=== PATIENT | female | born 1980 | race Caucasian/White ===

== ENCOUNTER 2017-07-05 10:31 | Emergency (ER) | payer BC ==
[2017-07-05 11:20] VITALS: BP 104/70
--- NOTE | 2017-07-05 11:35 | UC ---
Throat Pain/Nasal Jose HPI - HPI Summary HPI Summary: Pt presents with sore throat and cough for the last 3 days. 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 Has not been taking anything OTC. Denies fever, chills, SOB, chest pain, abdominal pain. - History of Current Complaint Chief Complaint: UCGeneralIllness Stated Complaint: SORE THROAT Time Seen by Provider: 07/05/17 11:34 Hx Obtained From: Patient Hx Last Menstrual Period: 06/13/17 Onset/Duration: Gradual Onset Severity: Mild Pain Intensity: 3 Pain Scale Used: 0-10 Numeric - Allergies/Home Medications Allergies/Adverse Reactions: Allergies Allergy/AdvReac Type Severity Reaction Status Date / Time No Known Allergies Allergy Verified 07/05/17 11:15 Home Medications: Home Medications NK [No Home Medications Reported] 07/05/17 [History Confirmed 07/05/17] PMH/Surg Hx/FS Hx/Imm Hx Previously Healthy: Yes - Surgical History Surgical History: Yes Surgery Procedure, Year, and Place: left wrist surgery as a child - Family History Known Family History: Positive: None - Social History Occupation: Employed Full-time Lives: With Family Alcohol Use: Occasionally Substance Use Type: None Smoking Status (MU): Never Smoked Tobacco Review of Systems Constitutional: Negative Skin: Negative Eyes: Negative ENT: Sore Throat Respiratory: Cough Cardiovascular: Negative Gastrointestinal: Negative All Other Systems Reviewed And Are Negative: Yes Physical Exam - Summary Physical Exam Summary: GENERAL: NAD. WDWN. No pain distress. SKIN: No rashes, sores, ulcers, masses, lesions. HEENT: Head: AT/NC Eyes: Conjunctiva clear without inflammation or discharge. Ears: Hearing grossly normal. TMs intact, no bulging, erythema, or edema. Nose: Nasal mucosa pink and moist. NTTP maxillary and frontal sinus. Throat: Posterior oropharynx mild erythema and 2+ tonsillar enlargement. No exudates. Uvula midline. No hoarse voice or muffled voice. NECK: Supple. Nontender. No lymphadenopathy. CHEST: CTAB. No r/r/w. No accessory muscle use. Breathing comfortably and in no distress. CV: RRR. Without m/r/g. Pulses intact. Brisk cap refill. NEURO: Alert. CN II-XII grossly intact. PSYCH: Age appropriate behavior. Triage Information Reviewed: Yes Vital Signs: Initial Vital Signs Temp 98.8 F 07/05/17 11:15 Pulse 64 07/05/17 11:15 Resp 16 07/05/17 11:15 BP 104/70 07/05/17 11:15 Pulse Ox 100 07/05/17 11:15 Throat Pain/Nasal Course/Dx - Course Course Of Treatment: POC strep negative. Suspect viral pharyngitis. Advised rest , fluids, and ibuprofen prn. Pt agreeable to this plan - Differential Dx/Diagnosis Provider Diagnoses: Viral pharyngitis Discharge - Discharge Plan Condition: Stable Disposition: HOME Patient Education Materials: Pharyngitis (ED) Forms: *Work Release Referrals: Riley Parker MD [Primary Care Provider] - Additional Instructions: If you develop a fever, shortness of breath, chest pain, new or worsening symptoms - please call your PCP or go to the ED.
== END 2017-07-05 12:10 | disposition home or self-care (01) ==
LOC: UCEAST 10:31
DX: J02.8 Acute pharyngitis due to other specified organisms (principal)
CPT/HCPCS: 87651; 99211; G0463

== ENCOUNTER 2017-08-26 11:33 | Emergency (ER) | payer BC ==
[2017-08-26 11:58] VITALS: BP 99/61
--- NOTE | 2017-08-26 12:20 | UC ---
Throat Pain/Nasal Jose HPI - HPI Summary HPI Summary: started feeling sick 5 days ago, ST, fever, tested neg for strep and influenza 3 days ago. still coughing and nasal drainage is green now. tried OTC cold meds without relief - History of Current Complaint Chief Complaint: UCGeneralIllness Stated Complaint: COUGH Time Seen by Provider: 08/26/17 11:39 Hx Obtained From: Patient Hx Last Menstrual Period: 08/07/2017 ?: No Onset/Duration: Gradual Onset Severity: Moderate Pain Intensity: 0 Cough: Productive Associated Signs & Symptoms: Positive: Sinus Discomfort, Nasal Discharge, Other - fatigue - Allergies/Home Medications Allergies/Adverse Reactions: Allergies Allergy/AdvReac Type Severity Reaction Status Date / Time No Known Allergies Allergy Verified 07/05/17 11:15 PMH/Surg Hx/FS Hx/Imm Hx Previously Healthy: Yes - Surgical History Surgical History: Yes Surgery Procedure, Year, and Place: left wrist surgery as a child - Family History Known Family History: Positive: None - Social History 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 Lives: With Family Alcohol Use: Occasionally Substance Use Type: None Smoking Status (MU): Never Smoked Tobacco Review of Systems Constitutional: Fatigue Skin: Negative ENT: Nasal Discharge, Sinus Congestion Respiratory: Cough Cardiovascular: Negative Musculoskeletal: Negative Neurological: Negative Psychological: Negative Is Patient Immunocompromised?: No All Other Systems Reviewed And Are Negative: Yes Physical Exam Triage Information Reviewed: Yes Appearance: Well-Appearing, Well-Nourished Vital Signs: Initial Vital Signs Temp 98.7 F 08/26/17 11:53 Pulse 82 08/26/17 11:53 Resp 18 08/26/17 11:53 BP 99/61 08/26/17 11:53 Pulse Ox 100 08/26/17 11:53 Vital Signs Reviewed: Yes Eye Exam: Normal Eyes: Positive: Conjunctiva Clear ENT: Positive: Nasal congestion, TMs normal, Sinus tenderness Neck exam: Normal Neck: Positive: Supple, Nontender Respiratory Exam: Normal Respiratory: Positive: Lungs clear Cardiovascular Exam: Normal Psychological Exam: Normal Skin Exam: Normal Throat Pain/Nasal Course/Dx - Differential Dx/Diagnosis Differential Diagnosis/HQI/PQRI: Influenza, Pharyngitis, Sinusitis, URI Provider Diagnoses: sinusitis Discharge - Sign-Out/Discharge Documenting (check all that apply): Discharge/Admit/Transfer - Discharge Plan Condition: Good Disposition: HOME Prescriptions: Cefdinir cap (NF) [Cefdinir 300 MG cap (NF)] 300 mg PO BID #20 cap Patient Education Materials: Sinusitis (ED) Referrals: Riley Parker MD [Primary Care Provider] - 3 Days (if no better) Additional Instructions: drink plenty of fluids and rest use DayQuil/NyQuil for symptom relief use cefdinir as prescribed - Billing Disposition and Condition Condition: GOOD Disposition: HOME
== END 2017-08-26 12:25 | disposition home or self-care (01) ==
LOC: UCEAST 11:33
DX: J32.9 Chronic sinusitis, unspecified (principal); R53.83 Other fatigue
CPT/HCPCS: 99212; G0463

== ENCOUNTER 2017-12-15 19:09 | Emergency (ER) | payer BC ==
[2017-12-15 19:29] VITALS: BP 97/59
--- NOTE | 2017-12-15 19:46 | UC ---
UC General HPI - HPI Summary HPI Summary: Pleasant 37 yo female c/o progressive R thigh pain. Sx started one week ago, progressively worse. Today more concerned d/t feeling of unwellness, facial tingling. Without sob perse. No palpitations / chest pain. No GI issues. Sign hx - s/p elective medical ab on Monday, still some bleeding but better. IUD placed at that time. No fever / chills. No recent injury. No rash. Sgn fam hx - father pulm embolism - History of Current Complaint Chief Complaint: UCGeneralIllness Stated Complaint: RADIATING THIGH PAIN,NAUSEA,TINGLING Time Seen by Provider: 12/15/17 19:42 Hx Obtained From: Patient Hx Last Menstrual Period: [id number] Pain Intensity: 0 - Allergy/Home Medications Allergies/Adverse Reactions: Allergies Allergy/AdvReac Type Severity Reaction Status Date / Time No Known Allergies Allergy Verified 12/15/17 19:29 Home Medications: Home Medications Ibuprofen TAB* [Motrin TAB* 400 MG] 400 mg PO Q6H PRN 12/15/17 [History Confirmed 12/15/17] PMH/Surg Hx/FS Hx/Imm Hx Previously Healthy: Yes - see hpi - Surgical History Surgical History: Yes Surgery Procedure, Year, and Place: left wrist surgery as a child - Family History Known Family History: Positive: Other - + father pulm emb - Social History Occupation: Employed Full-time Alcohol Use: Weekly Substance Use Type: None Smoking Status (MU): Former Smoker Review of Systems Constitutional: Fatigue Skin: Negative Eyes: Negative ENT: Negative Respiratory: Negative - see hpi Cardiovascular: Negative Gastrointestinal: Negative Genitourinary: Negative - see hpi Motor: Other - see hpi Neurovascular: Negative Musculoskeletal: Other: - see hpi Neurological: Negative Psychological: Negative Is Patient Immunocompromised?: No All Other Systems Reviewed And Are Negative: Yes Physical Exam Triage Information Reviewed: Yes Appearance: Well-Nourished - sitting up. NAD. looks tired. Vital Signs: Initial Vital Signs Temp 98.4 F 12/15/17 19:23 Pulse 77 12/15/17 19:23 Resp 16 12/15/17 19:23 BP 97/59 12/15/17 19:23 Pulse Ox 100 12/15/17 19:23 Vital Signs Reviewed: Yes Eye Exam: Normal - grossly normal ENT Exam: Normal - mmm, grossly normal Neck exam: Normal Neck: Positive: Supple Respiratory Exam: Normal Respiratory: Positive: Chest non-tender, Lungs clear, Normal breath sounds, No respiratory distress Cardiovascular Exam: Normal Cardiovascular: Positive: RRR, No Murmur, Pulses Normal, Brisk Capillary Refill Abdominal Exam: Normal Abdomen Description: Positive: Nontender Musculoskeletal Exam: Other - R thigh ant and med, ext to post + tender. + swelling mild R>L Without point bone tenderness. Neurological Exam: Normal - grossly nonfocal, facial expressions symmetric. + subj tingling sensation on maxillae Psychological Exam: Normal - conversing easily and appropriately Skin Exam: Normal - no visible or reported rash. there is a small very slightly red are c/w insect bite RLE, however not c/w level of nor degree of pain. groin bilat - without mass or adenopathy (although reports periodic hx R groin adenopathy) Course/Dx - Course Course Of Treatment: Reviewed coa / tx plan. UCG not done d/t recent ab as noted in HPI. Location (ant component) thigh discomfort less c/w vascular issues; however recent significant med hx, in addition to sign fam hx, increase risk vascular concern ex dvt. Other diff includes albeit not limited to chemistry, immunological, musc skel. To ED for further eval and treatment. Ms. Buenrostro will drive pov. Questions as posed answered to the best of my ability. - Differential Dx - Multi-Symptom Provider Diagnoses: Right leg pain Discharge - Sign-Out/Discharge Documenting (check all that apply): Patient Departure - Discharge Plan Condition: Stable Disposition: HOME-RECOMMEND TO ED Referrals: Riley Parker MD [Primary Care Provider] - Additional Instructions: Right leg pain - recommend Emergency Department for further evaluation / treatment. Call 911 for problems en route. - Billing Disposition and Condition Condition: STABLE Disposition: Home-Recommend to ED
== END 2017-12-15 20:15 | disposition home health service (06) ==
LOC: UCEAST 19:09
DX: M79.604 Pain in right leg (principal); R53.83 Other fatigue; Z87.891 Personal history of nicotine dependence
CPT/HCPCS: 99212; G0463

== ENCOUNTER 2017-12-15 20:38 | Emergency (ER) | payer BC ==
[2017-12-15 21:30] LABS: ABS Basophils 0 10^3/ul (0-0.2); ABS Eosinophils 0 10^3/ul (0-0.6); ABS Lymphocytes 2.5 10^3/ul (1.0-4.8); ABS Monocytes 0.4 10^3/ul (0-0.8); ABS Neutrophils 3.4 10^3/ul (1.5-7.7); ABS Nucleated RBC 0 10^3/ul; Eosinophil % 0.8 % (0-6); Hematocrit 40 % (35-47); Hemoglobin 13.5 g/dl (12.0-16.0); Lymphocyte % 38.7 % (25-47); Mean Corpuscular HGB Conc 34 g/dl (31-36); Mean Corpuscular Hemoglobin 31 pg (27-31); Mean Corpuscular Volume 92 fL (80-97); Mean Platelet Volume 8.5 um3 (7.4-10.4); Nucleated Red Blood Cells % 0.1; Platelet Count 197 10^3/ul (150-450); Red Blood Count 4.37 10^6/ul (4.00-5.40); Red Cell Distribution Width 13 % (10.5-15); White Blood Count 6.4 10^3/ul (3.5-10.8)
[2017-12-15 21:47] LABS: EGFR Non-African American 87.8 (>60)
--- NOTE | 2017-12-15 23:10 | RAD ---
EXAM: US Duplex Right Lower Extremity Veins CLINICAL HISTORY: 37 years old, female; Pain; Leg, upper; Right; Additional info: Right thigh pain TECHNIQUE: Real-time duplex ultrasound scan of the right lower extremity veins integrating B-mode two-dimensional vascular structure, Doppler spectral analysis, color flow Doppler imaging and compression. COMPARISON: No relevant prior studies available. FINDINGS: Deep veins: Unremarkable. No DVT in the visualized common femoral, femoral, proximal deep femoral or popliteal veins. The veins demonstrate normal color flow, are normally compressible, with normal phasic flow and/or augmentation response. Superficial veins: Unremarkable. No thrombus in the visualized great saphenous vein. Soft tissues: No acute findings. No popliteal cyst. IMPRESSION: Normal right lower extremity duplex venous ultrasound. R0
--- NOTE | 2017-12-15 23:59 | ED ---
Lower Extremity - HPI Summary HPI Summary: 37-year-old female presents with right thigh pain for a week. She states that is crampy in nature. She denies any injury. No numbness or tingling. No back pain. She states that the cramping traveled up to her abd at one point. Patient taking Advil with some relief. Never had this before. No previous fracture to the area. She does have family history of blood clots. No recent travel or surgeries. She is nonsmoker. She recently got a copper IUD. - History of Current Complaint Chief Complaint: EDExtremityUpper Stated Complaint: PAIN IN RT LEG Time Seen by Provider: 12/15/17 23:29 Hx Last Menstrual Period: [id number] Pain Intensity: 1 - Allergies/Home Medications Allergies/Adverse Reactions: Allergies Allergy/AdvReac Type Severity Reaction Status Date / Time No Known Allergies Allergy Verified 12/15/17 21:00 PMH/Surg Hx/FS Hx/Imm Hx Endocrine/Hematology History: Denies: Hx Diabetes, Hx Thyroid Disease Cardiovascular History: Denies: Hx Hypertension Respiratory History: Denies: Hx Asthma, Hx Chronic Obstructive Pulmonary Disease (COPD) GI History: Denies: Hx Ulcer - Surgical History Surgery Procedure, Year, and Place: left wrist surgery as a child Infectious Disease History: No Infectious Disease History: Denies: Hx Hepatitis, Hx Human Immunodeficiency Virus (HIV), Traveled Outside the [place] in Last 30 Days - Family History Known Family History: Positive: None, Other - + father pulm emb - Social History Alcohol Use: Weekly Substance Use Type: Reports: None Smoking Status (MU): Former Smoker Review of Systems Negative: Fever Negative: Chest Pain Negative: Shortness Of Breath Positive: Myalgia - right lower leg All Other Systems Reviewed And Are Negative: Yes Physical Exam Triage Information Reviewed: Yes Vital Signs On Initial Exam: Initial Vitals Temp Pulse Resp BP Pulse Ox 98.8 F 65 16 116/70 100 12/15/17 20:55 12/15/17 20:55 12/15/17 20:55 12/15/17 20:55 12/15/17 20:55 Vital Signs Reviewed: Yes Appearance: Positive: Well-Appearing Skin: Positive: Warm, Dry Head/Face: Positive: Normal Head/Face Inspection Eyes: Positive: Normal, Conjunctiva Clear ENT: Positive: Pharynx normal Respiratory/Lung Sounds: Positive: Clear to Auscultation, Breath Sounds Present Cardiovascular: Positive: Normal, RRR Musculoskeletal: Positive: Strength/ROM Intact - right lower leg, Other - good pulses, sensation grossly intact Neurological: Positive: Normal Psychiatric: Positive: Normal Diagnostics - Vital Signs Vital Signs Temp Pulse Resp BP Pulse Ox 12/15/17 22:20 98.5 F 58 94/58 100 12/15/17 20:55 98.8 F 65 16 116/70 100 - Laboratory Lab Results: Lab Results 12/15/17 12/15/17 Range/Units 21:22 21:22 WBC 6.4 (3.5-10.8) 10^3/ul RBC 4.37 (4.00-5.40) 10^6/ul Hgb 13.5 (12.0-16.0) g/dl Hct 40 (35-47) % MCV 92 (80-97) fL MCH 31 (27-31) pg MCHC 34 (31-36) g/dl RDW 13 (10.5-15) % Plt Count 197 (150-450) 10^3/ul MPV 8.5 (7.4-10.4) um3 Neut % (Auto) 53.2 (38-83) % Lymph % (Auto) 38.7 (25-47) % [place] % (Auto) 6.6 (0-7) % Eos % (Auto) 0.8 (0-6) % Baso % (Auto) 0.7 (0-2) % Absolute Neuts (auto) 3.4 (1.5-7.7) 10^3/ul Absolute Lymphs (auto) 2.5 (1.0-4.8) 10^3/ul Absolute Monos (auto) 0.4 (0-0.8) 10^3/ul Absolute Eos (auto) 0 (0-0.6) 10^3/ul Absolute Basos (auto) 0 (0-0.2) 10^3/ul Absolute Nucleated RBC 0 10^3/ul Nucleated RBC % 0.1 Sodium 139 (135-145) mmol/L Potassium 4.1 (3.5-5.0) mmol/L Chloride 107 (101-111) mmol/L Carbon Dioxide 27 (22-32) mmol/L Anion Gap 5 (2-11) mmol/L BUN 13 (6-24) mg/dL Creatinine 0.74 (0.51-0.95) mg/dL Est GFR ( Amer) 106.3 (>60) Est GFR (Non-Af Amer) 87.8 (>60) BUN/Creatinine Ratio 17.6 (8-20) Glucose 102 H (70-100) mg/dL Calcium 9.2 (8.6-10.3) mg/dL Total Bilirubin 0.40 (0.2-1.0) mg/dL AST 14 (13-39) U/L ALT 8 (7-52) U/L Alkaline Phosphatase 51 (34-104) U/L Total Protein 7.2 (6.4-8.9) g/dL Albumin 4.4 (3.2-5.2) g/dL Globulin 2.8 (2-4) g/dL Albumin/Globulin Ratio 1.6 (1-3) Result Diagrams: 12/15/17 21:22 12/15/17 21:22 Lab Statement: Any lab studies that have been ordered have been reviewed, and results considered in the medical decision making process. - Ultrasound No standard instances Ultrasound Interpretation: No Acute Changes Ultrasound Interpretation Completed By: Radiologist Lower Extremity Course/Dx - Course Course Of Treatment: 37-year-old female presents with right thigh pain for a week. She states that is crampy in nature. She denies any injury. No numbness or tingling. No back pain. She states that the cramping traveled up to her abd at one point. Patient taking Advil with some relief. Never had this before. No previous fracture to the area. She does have family history of blood clots. No recent travel or surgeries. She is nonsmoker. She recently got a copper IUD. On exam has full range of motion of right leg. Neurovascular intact. Ultrasound normal. Labs normal. We'll have follow-up with primary. Patient understands agrees the plan. - Diagnoses Differential Diagnosis/HQI/PQRI: Positive: DVT, Fracture (Closed), Sprain Provider Diagnoses: Right thigh pain Discharge - Sign-Out/Discharge Documenting (check all that apply): Patient Departure - Discharge Plan Condition: Good Disposition: HOME Patient Education Materials: Leg Pain (ED) Referrals: Riley Parker MD [Primary Care Provider] - Additional Instructions: Take Tylenol or ibuprofen every 6 hours as needed for pain Apply ice, rest, elevate Follow up with primary care physician within 5 days Return to ED if develop any new or worsening symptoms - Billing Disposition and Condition Condition: GOOD Disposition: Home
[2017-12-16 00:19] VITALS: BP 101/80
== END 2017-12-16 00:18 | disposition home or self-care (01) ==
LOC: ED 20:38
DX: M79.651 Pain in right thigh (principal); Z97.5 Presence of (intrauterine) contraceptive device; Z87.891 Personal history of nicotine dependence
CPT/HCPCS: 36415; 80053; 85025; 99283

== ENCOUNTER 2018-01-19 19:37 | Emergency (ER) | payer BC ==
[2018-01-19 20:10] VITALS: BP 115/77
--- NOTE | 2018-01-19 20:15 | UC ---
Hand/Wrist HPI - HPI Summary HPI Summary: This patient is a 38 year old F presenting to [facility] with a chief complaint of L thumb pain since 1930. Patient rates the pain 7/10 in severity and describes it as an aching pain. Prior treatment includes Advil x2. The patient closed the car door on her thumb after loading her children into her vehicle. 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 - History Of Current Complaint Chief Complaint: UCUpperExtremity Stated Complaint: THUMB INJURY Time Seen by Provider: 01/19/18 20:09 Hx Obtained From: Patient Hx Last Menstrual Period: [id number] Onset/Duration: Sudden Onset, Lasting Hours, Still Present Severity Initially: Moderate Severity Currently: Moderate Pain Intensity: 7 Character Of Pain: Aching Aggravating Factor(s): Other - nothing Alleviating Factor(s): Nothing Associated Signs And Symptoms: Positive: Other - Allergies/Home Medications Allergies/Adverse Reactions: Allergies Allergy/AdvReac Type Severity Reaction Status Date / Time No Known Allergies Allergy Verified 01/19/18 20:07 PMH/Surg Hx/FS Hx/Imm Hx Endocrine History: Other Other Endocrine History: No DM Cardiovascular History: Other Other Cardiovascular History: No CAD, HTN - Surgical History Surgical History: Yes Surgery Procedure, Year, and Place: left wrist surgery as a child - Family History Known Family History: Positive: Other - + father pulm emb - Social History Alcohol Use: Weekly Substance Use Type: None Smoking Status (MU): Former Smoker Review of Systems Constitutional: Other - No fever Musculoskeletal: Other: - L Thumb Pain All Other Systems Reviewed And Are Negative: Yes Physical Exam - Summary Physical Exam Summary: VITAL SIGNS: Reviewed. GENERAL: Patient is a well-developed and nourished FEMALE who is lying comfortable in the stretcher. Patient is not in any acute respiratory distress. HEAD AND FACE: Normocephalic EYES: PERRLA, EOMI x 2. EARS: Hearing grossly intact. MOUTH: Oropharynx within normal limits. NECK: Supple, trachea is midline, no adenopathy, no JVD, no carotid bruit. CHEST: Symmetric, no tenderness at palpation LUNGS: Clear to auscultation bilaterally. No wheezing or crackles. CVS: Regular rate and rhythm, S1 and S2 present, no murmurs or gallops appreciated. ABDOMEN: Soft, non-tender. Bowel sounds are normal. No abdominal abnormal pulsations. EXTREMITIES: Full ROM in all major joints, no edema, no cyanosis or clubbing.Tenderness in L Thumb. NEURO: Alert and oriented x 3. No acute neurological deficits. Speech is normal and follows commands. SKIN: Dry and warm Triage Information Reviewed: Yes Vital Signs: Initial Vital Signs Temp 98.9 F 01/19/18 20:07 Pulse 85 01/19/18 20:07 Resp 16 01/19/18 20:07 BP 115/77 01/19/18 20:07 Pulse Ox 100 01/19/18 20:07 Vital Signs Reviewed: Yes Diagnostics - Radiology L thumb XR Radiology Interpretation Completed By: ED Physician - No evidence of fracture or dislocation. Pending official radiologist interpretation. Re-Evaluation - Re-Evaluation First Eval Re-Evaluation Time: 20:27 Comment: Discussed XR results and plan for discharge witht the patient. Hand/Wrist Course/Dx - Course Course Of Treatment: X-ray of the left first digit impression: No fracture dislocation. The physical exam the patient is neurovascularly intact. Patient was placed in a finger splint. She will be discharged home with follow-up with PCP. She was instructed to return to the urgent care or go to the emergency room if the patient develops increase in pain, more swelling, erythema or any other symptom. She understands and agrees. - Differential Dx/Diagnosis Differential Diagnosis/HQI/PQRI: Other - thumb pain Provider Diagnoses: thumb pain Discharge - Sign-Out/Discharge Documenting (check all that apply): Patient Departure All imaging exams completed and their final reports reviewed: Yes - Discharge Plan Condition: Stable Disposition: HOME Patient Education Materials: Finger Sprain (ED), Swollen Joint (ED) Referrals: Riley Parker MD [Primary Care Provider] - Additional Instructions: Take Acetaminophen or ibuprofen for pain Increase your fluid intake Return to the or go to the emergency department if symptoms worsen Follow-up with primary care physician in next 2-3 days - Billing Disposition and Condition Condition: STABLE Disposition: Home - Attestation Statements Document Initiated by Scribe: Yes Documenting Scribe: Vinicio Shaw Provider For Whom Scribe is Documenting (Include Credential): Nikko Godfrey MD Scribe Attestation: Vinicio Martinez, scribed for Nikko Godfrey MD on 01/19/18 at 2044. Scribe Documentation Reviewed: Yes Provider Attestation: The documentation as recorded by the scribe, Vinicio Shaw accurately reflects the service I personally performed and the decisions made by me, Nikko Godfrey MD
--- NOTE | 2018-01-20 12:59 | RAD ---
INDICATION: Left thumb interphalangeal joint pain COMPARISON: None TECHNIQUE: 3 views of the left thumb were obtained. FINDINGS: The bones are normal alignment. Joint spaces appear maintained. No fracture is seen. IMPRESSION: No acute fracture or dislocation. If the patient's symptoms persist, follow-up imaging is recommended. R0
== END 2018-01-19 20:39 | disposition home or self-care (01) ==
LOC: UCEAST 19:37
DX: M79.645 Pain in left finger(s) (principal); Y92.9 Unspecified place or not applicable; V49.88XS Car occupant (driver) (passenger) injured in other specified transport accidents, sequela; S64.32 Injury of digital nerve of left thumb
CPT/HCPCS: 99211; G0463

== ENCOUNTER 2018-10-06 11:23 | Emergency (ER) | payer BC ==
--- NOTE | 2018-10-06 11:51 | ED ---
Dizziness - HPI Summary HPI Summary: Time seen by provider: 1148. The patient is a 38 y/o F presenting to [facility] with a chief complaint of sudden onset dizziness and blurred vision yesterday that has since resolved. She states she was driving at the time of onset, and then her symptoms dissipated after a while. She additionally c/o tingling in the right face, fingers, and leg , that has also since resolved except the right finger tingling is still somewhat present now. She states she is unsure if the symptoms were a result of stress or anxiety, which she has had anxiety attacks before but were different. She called her PCP, who suggested she get checked for possible TIA. No hx except borderline hypotensive. She also reports that she is sensitive to elevation and pressure changes. Surgical hx in left forearm when younger. FHx of diabetes and breast cancer. Former smoker, weekly EtOH, no substance use. - History Of Current Complaint Chief Complaint: EDNeurologicalDeficit Stated Complaint: "DIZZINESS PER PT" Time Seen by Provider: 10/06/18 11:43 Hx Obtained From: Patient Onset/Duration: Resolved, Suddenly Timing: Minutes Severity Initially: Moderate Severity Currently: Mild Character: Dizzy Aggravating Factor(s): Nothing Alleviating Factor(s): Nothing Associated Signs And Symptoms: Positive: Visual Changes - blurred vision, Other : - tingling in right side of face (resolved), right fingers (still present), and right leg (resolved) - Allergies/Home Medications Allergies/Adverse Reactions: Allergies Allergy/AdvReac Type Severity Reaction Status Date / Time No Known Allergies Allergy Verified 10/06/18 11:40 Home Medications: Home Medications NK [No Home Medications Reported] 10/06/18 [History Confirmed 10/06/18] PMH/Surg Hx/FS Hx/Imm Hx Endocrine/Hematology History: Denies: Hx Diabetes, Hx Thyroid Disease Cardiovascular History: Denies: Hx Hypertension Respiratory History: Denies: Hx Asthma, Hx Chronic Obstructive Pulmonary Disease (COPD) GI History: Denies: Hx Ulcer - Surgical History Surgery Procedure, Year, and Place: left wrist surgery as a child Infectious Disease History: No Infectious Disease History: Denies: Hx Hepatitis, Hx Human Immunodeficiency Virus (HIV), Traveled Outside the [place] in Last 30 Days - Family History Known Family History: Positive: Diabetes - maternal grandfather, Other - PE in father, breast cancer in mother - Social History Alcohol Use: Weekly Hx Substance Use: No Substance Use Type: Reports: None Hx Tobacco Use: Yes Smoking Status (MU): Former Smoker Do You Chew or Dip Tobacco: No Have You Chewed or Dipped Tobacco in the LAST YEAR: No Have You Smoked in the Last Year: No Review of Systems Positive: Blurred Vision Neurological: Other - dizziness, tingling in right face, fingers (still present) , and leg All Other Systems Reviewed And Are Negative: Yes Physical Exam - Summary Physical Exam Summary: VITAL SIGNS: Reviewed. GENERAL: Patient is a well-developed and nourished female who is lying comfortable in the stretcher but appears to be anxious. Patient is not in any acute respiratory distress. HEAD AND FACE: No signs of trauma. No ecchymosis, hematomas or skull depressions. No sinus tenderness. EYES: PERRLA, EOMI x 2, No injected conjunctiva, no nystagmus. No photophobia. EARS: Hearing grossly intact. Ear canals and tympanic membranes are within normal limits. MOUTH: Oropharynx within normal limits. NECK: Supple, trachea is midline, no adenopathy, no JVD, no carotid bruit, no c- spine tenderness, neck with full ROM. No meningeal signs, no Kernig's or brudzinskis signs. CHEST: Symmetric, no tenderness at palpation LUNGS: Clear to auscultation bilaterally. No wheezing or crackles. CVS: Regular rate and rhythm, S1 and S2 present, no murmurs or gallops appreciated. ABDOMEN: Soft, non-tender. No signs of distention. No rebound no guarding, and no masses palpated. Bowel sounds are normal. EXTREMITIES: FROM in all major joints, no edema, no cyanosis or clubbing. NEURO: Alert and oriented x 3. No acute neurological deficits. Speech is normal and follows commands. SKIN: Dry and warm. GCS: 15 NIH: 0 Triage Information Reviewed: Yes Vital Signs On Initial Exam: Initial Vitals Temp Pulse Resp BP Pulse Ox 98.4 F 86 14 124/89 100 10/06/18 11:35 10/06/18 11:35 10/06/18 11:35 10/06/18 11:35 10/06/18 11:35 Vital Signs Reviewed: Yes - Misael Coma Scale Best Eye Response: 4 - Spontaneous Best Motor Response: 6 - Obeys Commands Best Verbal Response: 5 - Oriented Coma Scale Total: 15 Diagnostics - Vital Signs Vital Signs Temp Pulse Resp BP Pulse Ox 10/06/18 11:35 98.4 F 86 14 124/89 100 - Laboratory Result Diagrams: 10/06/18 12:22 10/06/18 12:22 Lab Statement: Any lab studies that have been ordered have been reviewed, and results considered in the medical decision making process. - Radiology CXR Radiology Interpretation Completed By: Radiologist Summary of Radiographic Findings: Findings consistent with COPD, no evidence for acute disease. ED physician has reviewed this radiology report. - CT Brain CT CT Interpretation Completed By: Radiologist Summary of CT Findings: No evidence for acute intracranial abnormality. ED physician has reviewed this radiology report. 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 Non-Paretic Hand: Both Correctly Best Gaze (Only Horizontal Eye Movement): Normal Visual Field Testing: No Visual Loss Facial Paresis-Pt to Smile & Close Eyes or Grimace Symmetry: Normal/Symmetrical Motor Function - Right Arm: No Drift-Holds 10 Seconds Motor Function - Left Arm: No Drift-Holds 10 Seconds Motor Function - Right Leg: No Drift-Holds 10 Seconds Motor Function - Left Leg: No Drift-Holds 10 Seconds Limb Ataxia-Must be out of Proportion to Weakness Present: Absent Sensory (Use Pinprick to Test Arms/Legs/Trunk/Face): Normal Best Language (Describe Picture, Name Items): No Aphasia Dysarthria (Read Several Words): Normal Extinction and Inattention: No Abnormality Total Score: 0 Re-Evaluation - Re-Evaluation First Eval Re-Evaluation Time: 13:10 Comment: I discussed results and discharge home with follow up with PCP. Dizzy Course/Dx - Course Assessment/Plan: The patient is a 38 y/o F presenting to [facility] with a chief complaint of sudden onset dizziness and blurred vision yesterday that has since resolved. She states she was driving at the time of onset, and then her symptoms dissipated after a while. She additionally c/o tingling in the right face, fingers, and leg, that has also since resolved except the right finger tingling is still somewhat present now. She states she is unsure if the symptoms were a result of stress or anxiety, which she has had anxiety attacks before but were different. She called her PCP, who suggested she get checked for possible TIA. No past medical hx except borderline hypotensive. She also reports that she is sensitive to elevation and pressure changes. Surgical hx in left forearm when younger. FHx of diabetes and breast cancer. Former smoker, weekly EtOH, no substance use. Blood work without any significant abnormality. Chest x-ray impression: Findings consistent with COPD, No evidence for acute disease. Head CT impression: No acute intracranial pathology. In the ED course the patient is stable. The patient doesnt have any neurological deficits. NIH score is equal to 0, and the Misael Coma Scale is equal to 15. Patient has no comorbidities for a TIA or CVA. Therefore, I have no suspicion for any of these diseases. I discussed my physical exam and findings with the patient and the need to follow-up with her primary care physician. She was recommended to return to the emergency room if she develops any other episode of dizziness, numbness, panic attacks, or any other complaint. The patient understands and agrees. - Diagnoses Provider Diagnoses: Anxiety Discharge - Sign-Out/Discharge Documenting (check all that apply): Patient Departure - Patient will be discharged home. Patient Received Moderate/Deep Sedation with Procedure: No - Discharge Plan Condition: Good Disposition: HOME Patient Education Materials: Anxiety (ED) Referrals: Riley Parker MD [Primary Care Provider] - 3 Days Additional Instructions: FOLLOW UP WITH YOUR PRIMARY CARE PROVIDER IN 2-3 DAYS. RETURN TO THE ED FOR ANY WORSENING OR NEW SYMPTOMS. - Billing Disposition and Condition Condition: GOOD Disposition: Home - Attestation Statements Document Initiated by Tasha: Yes Documenting Scribe: Keyana Adorno Provider For Whom Tasha is Documenting (Include Credential): Dr. Nikko Godfrey MD Scribe Attestation: Keyana Martinez scribed for Dr. Nikko Godfrey MD on 10/06/18 at 1310. Scribe Documentation Reviewed: Yes Provider Attestation: The documentation as recorded by the Keyana phan accurately reflects the service I personally performed and the decisions made by me, Dr. Nikko Godfrey MD Status of Scribe Document: Ready
[2018-10-06 12:32] LABS: ABS Lymphocytes 1.7 10^3/ul (1.0-4.8); ABS Monocytes 0.3 10^3/ul (0-0.8); ABS Neutrophils 2.9 10^3/ul (1.5-7.7); Eosinophil % 0.7 %; Hematocrit 42 % (35-47); Hemoglobin 14.1 g/dL (12.0-16.0); Lymphocyte % 33.5 %; Mean Corpuscular HGB Conc 34 g/dL (31-36); Mean Corpuscular Hemoglobin 31 pg (27-31); Mean Corpuscular Volume 91 fL (80-97); Mean Platelet Volume 9.5 fL (7.4-10.4); Platelet Count 192 10^3/uL (150-450); Red Blood Count 4.62 10^6 /uL (3.70-4.87); Red Cell Distribution Width 13 % (10-15); White Blood Count 4.9 10^3/uL (3.5-10.8)
[2018-10-06 12:38] LABS: INR 0.97 (0.82-1.09)
[2018-10-06 12:48] LABS: ALT 9 U/L (7-52); AST 16 U/L (13-39); Albumin 4.5 g/dL (3.2-5.2); Albumin/Globulin Ratio 1.7 (1-3); Alkaline Phosphatase 62 U/L (34-104); Anion Gap 6 mmol/L (2-11); BUN/Creatinine Ratio 13.9 (8-20); Blood Urea Nitrogen 11 mg/dL (6-24); CO2 Carbon Dioxide 27 mmol/L (22-32); Calcium 9.5 mg/dL (8.6-10.3); Chloride 107 mmol/L (101-111); Globulin 2.7 g/dL (2-4); Glucose 94 mg/dL (70-100); Potassium 3.9 mmol/L (3.5-5.0); Sodium 140 mmol/L (135-145); Total Protein 7.2 g/dL (6.4-8.9)
[2018-10-06 12:55] LABS: HCG Pregnancy < 0.60 mIU/mL
[2018-10-06 13:00] LABS: Urine Appearance Clear; Urine Bacteria Absent (Absent); Urine Bilirubin Negative (Negative); Urine Blood 3+ (Negative); Urine Color Straw; Urine Glucose Negative (Negative); Urine Ketones Negative (Negative); Urine Nitrite Negative (Negative); Urine Protein Negative (Negative); Urine Red Blood Cell Trace(0-2/hpf) (Absent); Urine Specific Gravity 1.004 (1.010-1.030); Urine Squamous Epithelial Cell Present (Absent); Urine Urobilinogen Negative (Negative); Urine White Blood Cell Trace(0-5/hpf) (Absent)
[2018-10-06 13:10] VITALS: BP 111/77
== END 2018-10-06 13:14 | disposition home or self-care (01) ==
LOC: ED 11:23
DX: F41.9 Anxiety disorder, unspecified (principal); R20.2 Paresthesia of skin; Z87.891 Personal history of nicotine dependence
CPT/HCPCS: 36415; 70450; 71046; 80053; 81003; 81015; 83605; 84484; 84702; 85025; 85610; 87086; 93005; 99282

== ENCOUNTER 2018-10-26 10:16 | Emergency (ER) | payer BC ==
--- NOTE | 2018-10-26 10:20 | UC ---
Skin Complaint HPI - HPI Summary HPI Summary: 38 yo female presents with puncture wound. 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 Had immediate pain. She washed the area with soap and water and applied gauze. Came directly to . She states her last tetanus was "a long time ago". - History of Current Complaint Time Seen by Provider: 10/26/18 10:20 Stated Complaint: PUNCTURE WOUND Hx Obtained From: Patient Hx Last Menstrual Period: [id number] Onset/Duration: Sudden Onset Skin Exposure Onset/Duration: Minutes Ago Timing: Constant Onset Severity: Moderate Current Severity: Mild Pain Intensity: 4 Pain Scale Used: 0-10 Numeric - Allergy/Home Medications Allergies/Adverse Reactions: Allergies Allergy/AdvReac Type Severity Reaction Status Date / Time No Known Allergies Allergy Verified 10/26/18 10:22 PMH/Surg Hx/FS Hx/Imm Hx - Additional Past Medical History Additional PMH: None - Surgical History Surgical History: Yes Surgery Procedure, Year, and Place: LEFT WRIST ( CHILD); - Family History Known Family History: Positive: Diabetes - maternal grandfather, Other - PE in father, breast cancer in mother - Social History Occupation: Employed Full-time Lives: With Family Alcohol Use: Weekly Substance Use Type: None Smoking Status (MU): Former Smoker Have You Smoked in the Last Year: No Review of Systems All Other Systems Reviewed And Are Negative: Yes Constitutional: Positive: Negative Skin: Positive: Other - Puncture wound right foot Respiratory: Positive: Negative Cardiovascular: Positive: Negative Musculoskeletal: Positive: Negative Neurological: Positive: Negative Psychological: Positive: Negative Physical Exam - Summary Physical Exam Summary: GENERAL: NAD. WDWN. No pain distress. SKIN: RIGHT FOOT: Plantar aspect of the first MTP there is a linear 5mm puncture wound with <1mm width. No bleeding or FB. Mildly TTP. CHEST: No accessory muscle use. Breathing comfortably and in no distress. CV: Pulses intact. Cap refill <2seconds NEURO: Alert. PSYCH: Age appropriate behavior. Triage Information Reviewed: Yes Vital Signs: Vital Signs: Temp Pulse Resp BP Pulse Ox 98.9 F 88 16 106/67 98 10/26/18 10:20 10/26/18 10:20 10/26/18 10:20 10/26/18 10:20 10/26/18 10:20 Vital Signs Reviewed: Yes Course/Dx - Course Course Of Treatment: Wound appears well clean and appears quite superficial with <2mm depth. Gauze applied to the site for comfort. Will place her on keflex for prophylactic infection. tdap updated today. - Diagnoses Provider Diagnosis: Puncture wound of right foot Discharge - Sign-Out/Discharge Documenting (check all that apply): Patient Departure All imaging exams completed and their final reports reviewed: No Studies - Discharge Plan Condition: Stable Disposition: HOME Prescriptions: Cephalexin CAP* [Keflex CAP*] 500 mg PO TID #15 cap Patient Education Materials: Puncture Wound (DC) Referrals: Riley Parker MD [Primary Care Provider] - Additional Instructions: If you develop a fever, shortness of breath, chest pain, new or worsening symptoms - please call your PCP or go to the ED immediately. 1) Please keep the area bandaged to reduce pain and to protect the site until well healed (likely 2-4 days) 2) Your tetanus shot was updated today 3) May take tylenol or ibuprofen as directed for discomfort and wear comfortable footwear to reduce pain - Billing Disposition and Condition Condition: STABLE Disposition: Home - Attestation Statements Provider Attestation: I was available for consult. This patient was seen by the SHELIA. The patient was not presented to, seen by, or examined by me. -Iris
[2018-10-26] MEDS ORDERED: Tetan/Diph/Pertus SYR(Tdap)* 0.5 ML SYR(BOOSTRIX) use SYR IM ONE (10:25)
[2018-10-26 10:28] VITALS: BP 106/67
== END 2018-10-26 10:36 | disposition home or self-care (01) ==
LOC: UCEAST 10:16
DX: S91.331A Puncture wound without foreign body, right foot, initial encounter (principal); W22.8XXA Striking against or struck by other objects, initial encounter; Y93.E9 Activity, other interior property and clothing maintenance; Y92.019 Unspecified place in single-family (private) house as the place of occurrence of the external cause; Y99.8 Other external cause status; Z87.891 Personal history of nicotine dependence
CPT/HCPCS: 90471; 90715; 99212; G0463